=== PATIENT | female | born 1960 | race Hispanic/Latino ===

== ENCOUNTER 2016-09-21 14:57 | Emergency (ER) | payer BC ==
[~2016-09-21] VITALS: Ht 172.7 cm; Wt 61.2 kg
[2016-09-21 15:00] VITALS: TEMP 99
[2016-09-21 15:48] LABS: PLATELET COUNT 404 K/uL (152-353)
[2016-09-21 15:59] LABS: POTASSIUM 4.1 mmol/L (3.6-5.2); SODIUM 136 mmol/L (136-145)
[2016-09-21 16:33] VITALS: BP 128/102
== END 2016-09-21 16:32 | disposition home or self-care (01) ==
LOC: ED 14:57
DX: B02.9 Zoster without complications (principal); R10.9 Unspecified abdominal pain
CPT/HCPCS: 36415; 80053; 81000; 85027; 96374; 99284; J1885

== ENCOUNTER 2016-09-28 23:26 | Emergency (ER) | payer BC ==
[~2016-09-28] VITALS: Ht 172.7 cm; Wt 61.2 kg
[2016-09-29 00:36] LABS: PLATELET COUNT 369 K/uL (152-353)
[2016-09-29 00:46] LABS: POTASSIUM 3.6 mmol/L (3.6-5.2); SODIUM 134 mmol/L (136-145)
[2016-09-29 02:24] VITALS: BP 146/74; TEMP 99.2
== END 2016-09-29 02:31 | disposition home or self-care (01) ==
LOC: ED 23:26
PROVIDERS: Specialist
DX: R10.13 Epigastric pain (principal); R11.2 Nausea with vomiting, unspecified
CPT/HCPCS: 80053; 80307; 81000; 85027; 96374; 96375; 99284; G0479; J0500; J2550; J3490